=== PATIENT | female | born 1955 | race Caucasian/White ===

== ENCOUNTER 2023-01-10 16:19 | Inpatient (IN) | payer MEDICAID ==
[~2023-01-10] VITALS: Ht 144.8 cm; Wt 70.3 kg
[2023-01-10 16:52] VITALS: BP 171/85
[2023-01-10 17:36] LABS: BASOPHILS % (AUTO) 0.4 % (0.0-2.0); EOSINOPHILS # (AUTO) 0.6 K/uL (0-0.4); EOSINOPHILS % (AUTO) 5.2 % (0.0-4.0); HEMATOCRIT 41.5 % (36-48); HEMOGLOBIN 13.6 g/dL (12.0-16.0); LYMPHOCYTES # (AUTO) 4.5 K/uL (2.5-16.5); LYMPHOCYTES % (AUTO) 42.6 % (20.5-51.1); MEAN CORPUSCULAR HEMOGLOBIN 27 pg (27-31); MEAN CORPUSCULAR HGB CONC 33 g/dL (33-37); MEAN CORPUSCULAR VOLUME 82.9 fL (80-94); MONOCYTES # (AUTO) 0.7 K/uL (0.8-1.0); MONOCYTES % (AUTO) 6.3 % (1.7-9.3); NEUTROPHILS # (AUTO) 4.8 K/uL (1.8-7.7); NEUTROPHILS % (AUTO) 45.5 % (42.2-75.2); PLATELET COUNT (AUTO) 203 K/uL (140-450); RED CELL DISTRIBUTION WIDTH 13.9 % (11.6-13.7); WHITE BLOOD COUNT (AUTO) 10.6 K/uL (4.8-10.8)
[2023-01-10 18:00] LABS: ALBUMIN 3.4 g/dL (3.4-5.0); ANION GAP 11.5 (8-16); CARBON DIOXIDE 27.6 mmol/L (21-32); CREATININE 0.6 mg/dL (0.6-1.3); POTASSIUM 4.1 mmol/L (3.5-5.1); TOTAL BILIRUBIN 0.3 mg/dL (0.0-1.0)
[2023-01-10] MEDS ORDERED: FUROSEMIDE 40 MG/4 ML VIAL IVP ONE (20:10)
--- NOTE | 2023-01-10 20:30 | NUR ---
Patient received on bed lying comfortably and awake. Alert and oriented x4. No acute distress. Complained of chest pain with the scale of 7/10. Respirations even and unlabored.
--- NOTE | 2023-01-10 21:02 | NUR ---
Patient will be admitted to care of Dr. Harvey. Admited to Telemetry. Will go to room 119B. Belongings list completed. Report to ROHAN Lisa.
[2023-01-10] MEDS ORDERED: BENZ200C4 PO (21:03)
[2023-01-10] MEDS ORDERED: LOSA100T2 PO (21:03)
[2023-01-10] MEDS ORDERED: HYDR12.51 PO (21:03)
--- NOTE | 2023-01-10 21:25 | NUR ---
RECEIVED REPORT FROM DAY SHIFT NURSE FOR CONTINUITY OF CARE. PT IS AWAKE AND STABLE. A&OX4. SWAZI SPEAKING BUT CAN ALSO SPEAK ARABIC. RUNNING 2L NC SATING AT 96%. IV SITE TO LEFT FOREARM 20 GAUGE, INTACT AND PATENT. PT EXPERIENCED A PAIN LEVEL OF 7 IN THE ER BUT SINCE THEN IS EXPERIENCING NO PAIN. SKIN IS INTACT. ORIENTED PT TO BEDROOM, BATHROOM, AND CALL LIGHT. WILL MONITOR FREQUENTLY THROUGHOUT SHIFT.
[2023-01-11] VITALS: BP 135/66
[2023-01-11 04:00] VITALS: BP 152/60
--- NOTE | 2023-01-11 06:00 | NUR ---
PT EXPRESSED DIFFICULTY WITH SLEEPING LAST NIGHT. VOIDED TWICE, NO BOWEL MOVEMENT THIS SHIFT. PT READY TO DISCUSS POC WITH HER PROVIDER. PT IS STABLE AT THIS TIME, WILL ENDORSE TO DAY SHIFT NURSE FOR CONTINUITY OF CARE.
[2023-01-11 07:19] LABS: BASOPHILS % (AUTO) 0.4 % (0.0-2.0); EOSINOPHILS # (AUTO) 0.5 K/uL (0-0.4); EOSINOPHILS % (AUTO) 4.7 % (0.0-4.0); HEMATOCRIT 41.6 % (36-48); HEMOGLOBIN 13.6 g/dL (12.0-16.0); LYMPHOCYTES # (AUTO) 3.7 K/uL (2.5-16.5); LYMPHOCYTES % (AUTO) 32.5 % (20.5-51.1); MEAN CORPUSCULAR HEMOGLOBIN 27 pg (27-31); MEAN CORPUSCULAR HGB CONC 33 g/dL (33-37); MEAN CORPUSCULAR VOLUME 83.1 fL (80-94); MONOCYTES # (AUTO) 0.7 K/uL (0.8-1.0); MONOCYTES % (AUTO) 6.2 % (1.7-9.3); NEUTROPHILS # (AUTO) 6.4 K/uL (1.8-7.7); NEUTROPHILS % (AUTO) 56.2 % (42.2-75.2); PLATELET COUNT (AUTO) 193 K/uL (140-450); RED CELL DISTRIBUTION WIDTH 13.8 % (11.6-13.7); WHITE BLOOD COUNT (AUTO) 11.3 K/uL (4.8-10.8)
[2023-01-11 07:36] LABS: ANION GAP 11.8 (8-16); CARBON DIOXIDE 28.9 mmol/L (21-32); CREATININE 0.7 mg/dL (0.6-1.3); POTASSIUM 3.7 mmol/L (3.5-5.1)
[2023-01-11 08:00] VITALS: BP 139/75
[2023-01-11] MEDS: FUROSEMIDE 40 MG/4 ML VIAL IVP SCH (08:58)
--- NOTE | 2023-01-11 09:20 | NUR ---
PATIENT HAS BEEN SCREENED AND CATEGORIZED MODERATE NUTRITION RISK. PATIENT WILL BE SEEN WITHIN 3-5 DAYS OF ADMISSION. REVIEWED BY OSMANI CHAVEZ RD
[2023-01-11] MEDS ORDERED: POTASSIUM CHLORIDE 10 MEQ TABER PO PRN (11:35)
[2023-01-11] MEDS ORDERED: ACETAMINOPHEN 325 MG TAB PO PRN (11:35)
[2023-01-11] MEDS ORDERED: MAG SULF 2000 MG/WATER PREMIX 50 ML IV PRN (11:35)
[2023-01-11] MEDS ORDERED: HYDROcodone/APAP 7.5/325 MG 1 TAB PO PRN (11:35)
[2023-01-11] MEDS ORDERED: ONDANSETRON 4 MG/2 ML VIAL IVP PRN (11:35)
[2023-01-11 12:00] VITALS: BP 134/77
[2023-01-11 14:26] LABS: PROTHROMBIN TIME 9.9 secs (10.8-13.4)
[2023-01-11 14:40] LABS: CHOL/HDL RATIO 6.2 (1-4.5); FREE T4 (FREE THYROXINE) 0.85 ng/dL (0.76-1.46); MAGNESIUM 1.6 mg/dL (1.8-2.4); PHOSPHORUS 5.1 mg/dL (2.5-4.9); THYROID STIMULATING HORMONE 2.15 uIU/mL (0.34-3.74)
[2023-01-11 16:00] VITALS: BP 124/75
--- NOTE | 2023-01-11 19:15 | NUR ---
RECEIVED REPORT FROM DAY SHIFT NURSE FOR CONTINUITY OF CARE. PT IS AWAKE AND STABLE. A&OX4. MALAYSIAN SPEAKING BUT CAN ALSO SPEAK GEORGIAN. RUNNING 2L NC WITH NO APPARENT SIGNS OF DISTRESS NOTED. IV SITE TO LEFT FOREARM 20 GAUGE. PT EXPERIENCING NO CHEST PAIN AT THIS TIME. WILL MAKE FREQUENT ROUNDS THROUGHOUT SHIFT.
[2023-01-11 20:00] VITALS: BP 128/63
--- NOTE | 2023-01-11 20:00 | NUR ---
Patient's Plan of Care was discussed and reviewed with PUBLIC RELATIONS CONSULTANT: LUISA JEFFRIES
[2023-01-11] MEDS ORDERED: LOSARTAN 50 MG TAB PO SCH (21:00)
[2023-01-11] MEDS ORDERED: BENZONATATE 200 MG PO SCH (21:00)
[2023-01-11] MEDS ORDERED: hydroCHLOROthiazide 25 MG TAB PO SCH (21:00)
[2023-01-11] MEDS: BENZONATATE 100 MG CAPLF PO SCH (21:03)
--- NOTE | 2023-01-11 21:03 | NUR ---
SCHEDULED MEDICATIONS ADMINISTERED WITH NO COMPLICATIONS. PT STATED SHE HASNT BEEN ABLE TO SLEEP FOR 3 DAYS. WILL ENDORSE TO CUPOLA MAN MD.
[2023-01-11] MEDS: DOCUSATE SODIUM 100 MG GELCAP PO SCH (21:04)
[2023-01-11 21:13] LABS: APPEARANCE,URINE CLEAR (CLEAR); BILIRUBIN,URINE NEGATIVE (NEGATIVE); BLOOD, URINE NEGATIVE (NEGATIVE); COLOR,URINE YELLOW (YELLOW); LEUKOCYTE ESTERASE ,URINE NEGATIVE (NEGATIVE); NITRITE, URINE NEGATIVE (NEGATIVE); UGLUCOSE NEGATIVE (NEGATIVE)
[2023-01-11 21:32] LABS: BARBITURATE, URINE NEGATIVE ng/ml (NEG <=200); BENZODIAZEPINE, URINE NEGATIVE ng/mL (NEG <=200); COCAINE, URINE NEGATIVE ng/mL (NEG <=300)
[2023-01-11 21:33] LABS: CANNABINOID, URINE NEGATIVE ng/mL (NEG <=50); OPIATE, URINE NEGATIVE ng/mL (NEG <=2000); PHENCYCLIDINE SCREEN,URINE NEGATIVE ng/mL (NEG <=25)
[2023-01-11] MEDS ORDERED: ZOLPIDEM 5 MG TAB PO PRN (22:50)
--- NOTE | 2023-01-11 23:01 | NUR ---
CONTACTED PAPER CUTTER OPERATOR DR. ATKINSON REGARDING PT INABILITY TO SLEEP. AMBIEN 5MG HS PRN WAS ORDERED AND ADMINISTERED WITH NO COMPLICATIONS. WILL CONTINUE TO MONITOR.
[2023-01-12] VITALS: BP 152/71
--- NOTE | 2023-01-12 01:12 | NUR ---
PT. MAGNESIUM LEVEL OF 1.6. POC WAS DISCUSSED WITH FELICIA SANCHEZ. MAG SULFATE 2G AT 25ML/HR WAS ADMINISTERED BY FELICIA SANCHEZ. WILL CONTINUE TO MONITOR.
[2023-01-12 04:11] VITALS: BP 121/87
--- NOTE | 2023-01-12 04:41 | NUR ---
IV SITE INFILTRATED. NEW IV SITE PLACED AT RIGHT FOREARM 22 GAUGE. WILL CONTINUE MONITORING THE PT.
--- NOTE | 2023-01-12 06:16 | NUR ---
PT ASLEEP, NOTICEABLE CHEST RISE AND FALL. WILL ENDORSE TO DAY SHIFT NURSE IN STABLE CONDITION.
[2023-01-12 07:27] LABS: BASOPHILS # (AUTO) 0.1 K/uL (0.00-0.22); BASOPHILS % (AUTO) 0.6 % (0.0-2.0); EOSINOPHILS # (AUTO) 0.4 K/uL (0-0.4); EOSINOPHILS % (AUTO) 4.5 % (0.0-4.0); HEMATOCRIT 43.2 % (36-48); HEMOGLOBIN 14.2 g/dL (12.0-16.0); LYMPHOCYTES # (AUTO) 3.7 K/uL (2.5-16.5); LYMPHOCYTES % (AUTO) 38.1 % (20.5-51.1); MEAN CORPUSCULAR HEMOGLOBIN 27 pg (27-31); MEAN CORPUSCULAR HGB CONC 33 g/dL (33-37); MEAN CORPUSCULAR VOLUME 83.6 fL (80-94); MONOCYTES # (AUTO) 0.5 K/uL (0.8-1.0); MONOCYTES % (AUTO) 5.5 % (1.7-9.3); NEUTROPHILS % (AUTO) 51.3 % (42.2-75.2); PLATELET COUNT (AUTO) 193 K/uL (140-450); RED BLOOD CELL COUNT(AUTO) 5.16 MIL/uL (4.20-5.40); RED CELL DISTRIBUTION WIDTH 14.2 % (11.6-13.7); WHITE BLOOD COUNT (AUTO) 9.8 K/uL (4.8-10.8)
[2023-01-12 07:30] LABS: ANION GAP 9.2 (8-16); CARBON DIOXIDE 31.5 mmol/L (21-32); CREATININE 0.7 mg/dL (0.6-1.3); POTASSIUM 3.7 mmol/L (3.5-5.1)
[2023-01-12 07:49] LABS: MAGNESIUM 2.5 mg/dL (1.8-2.4); PHOSPHORUS 4.5 mg/dL (2.5-4.9)
[2023-01-12 08:00] VITALS: BP 128/87
[2023-01-12] MEDS: BENZONATATE 100 MG CAPLF PO SCH (08:43)
[2023-01-12] MEDS: DOCUSATE SODIUM 100 MG GELCAP PO SCH (08:44)
[2023-01-12] MEDS: FUROSEMIDE 40 MG/4 ML VIAL IVP SCH (08:46)
[2023-01-12] MEDS ORDERED: LOSARTAN 50 MG TAB PO SCH (09:00)
[2023-01-12] MEDS ORDERED: PANTOPRAZOLE 40 MG INJ VIAL IVP SCH (09:00)
[2023-01-12] MEDS ORDERED: LOSA50TA1 PO (10:52)
[2023-01-12] MEDS ORDERED: FURO-570 PO (10:52)
[2023-01-12 11:50] VITALS: BP 118/61
[2023-01-12 12:00] VITALS: BP 118/61
--- NOTE | 2023-01-12 12:36 | NUR ---
DISCHARGE INSTRUCTIONS EXPLAINED TO PT, VERBALIZED UNDERSTANDING. IV REMOVED, BELONGINGS RETURNED.
[2023-01-12] MEDS ORDERED: ZOLPIDEM 5 MG TAB PO SCH (21:00)
--- NOTE | 2023-01-13 14:06 | NUR ---
CALLED [facility] LOCATED AT [address] [address] [facility] [id number]. SPOKE WITH HADLEY WHO WAS ABLE HELP ME MAKE APPOINTMENT FOR 01/19/2023 AT 1030 SHE ALSO NOTIFIED ME THAT SINCE PATIENT HAS NO INSURANCE THE VISIT WILL BE $50.00. CALLED SON ERLINDA AND INFORMED HIM OF THE ABOVE INFORMATION.
== END 2023-01-12 12:25 | disposition home or self-care (01) | DRG 194 ==
LOC: MED 16:19 → MTU 20:38
DX: I11.0 Hypertensive heart disease with heart failure (principal); J96.00 Acute respiratory failure, unspecified whether with hypoxia or hypercapnia; I50.23 Acute on chronic systolic (congestive) heart failure; I70.0 Atherosclerosis of aorta; Z20.822 Contact with and (suspected) exposure to COVID-19
CPT/HCPCS: 36415; 71045; 80048; 80053; 80305; 81003; 82140; 82150; 83036; 83605; 83690; 83735; 83880; 84100; 84439; 84443; 84484; 85025; 85379; 85610; 85730; 87040; 87081; 87086; 93005; 96374; 96375; 99285; C9113; J1644; J1940; J3475